=== PATIENT | female | born 1950 | race African-American/Black ===

== ENCOUNTER 2017-01-08 21:41 | Inpatient (IN) | payer MEDICARE, MEDICAID ==
[~2017-01-08] VITALS: Ht 162.6 cm; Wt 134.4 kg
[2017-01-08] MEDS ORDERED: ALBUTEROL (0.083%) 2.5MG/3ML NEB HHN STA (22:46)
[2017-01-08] MEDS ORDERED: NITROGLYCERIN OINT 1GM/INCH UDPKT TD STA (22:46)
[2017-01-08] MEDS ORDERED: FUROSEMIDE 40MG/4ML VIAL IV STA (22:46)
[2017-01-08] MEDS ORDERED: IPRATROPIUM BROMIDE (0.02%) 0.5MG/2.5ML NEB HHN STA (22:46)
[2017-01-08 23:22] LABS: HEMATOCRIT. 36.6 % (36.0-48.0); HEMOGLOBIN. 11.4 g/dL (12.0-16.0); MEAN CORPUSCULAR HEMOGLOBIN 26.6 pg (28.0-32.0); MEAN PLATELET VOLUME 7.8 fl (7.4-10.4); PLATELET 217 x1000/uL (130-400); RED BLOOD CELL COUNT 4.31 mill/uL (4.2-5.4); RED CELL DISTRIBUTION WIDTH 19.3 % (11.6-14.6)
[2017-01-08 23:43] LABS: CARBON DIOXIDE 26 mEq/L (21-32); CHLORIDE 103 mEq/L (98-107)
[2017-01-09] VITALS (65 sets, daily range): BP systolic 92–176; BP diastolic 43–105
[2017-01-09] MEDS ORDERED: HEPARIN 25,000 UNITS PREMIX 500 ML IV ONE
[2017-01-09] MEDS ORDERED: HEPARIN 5000 UNITS/ML VIAL IV ONE
[2017-01-09 00:29] LABS: PLATELET ESTIMATE NORMAL
[2017-01-09 01:05] LABS: INR 1.1; PARTIAL THROMBOPLASTIN TIME 28.2 sec (23.4-31.0); PROTHROMBIN TIME 11.8 sec (9.4-11.6)
[2017-01-09] MEDS ORDERED: MORPHINE SULFATE 4 MG/ML CPJ (NOT FOR IM USE) IV STA (03:55)
[2017-01-09] MEDS ORDERED: ONDANSETRON HCL 4MG/2ML VIAL IV STA (03:55)
[2017-01-09] MEDS ORDERED: NITROGLYCERIN 50MG PREMIX 250 ML IV ONE (04:00)
[2017-01-09] MEDS ORDERED: ASPIRIN 325MG EC TABLET PO NR (06:00)
[2017-01-09] MEDS ORDERED: MORPHINE SULFATE 2 MG/ML CPJ (NOT FOR IM USE) IV PRN (06:00)
[2017-01-09] MEDS ORDERED: ONDANSETRON HCL 4MG/2ML VIAL IV PRN (06:15)
[2017-01-09] MEDS ORDERED: HEPARIN 25,000 UNITS PREMIX 500 ML IV PRN (06:15)
[2017-01-09] MEDS ORDERED: Lantus SUBCUT (06:16)
[2017-01-09] MEDS ORDERED: humalog SUBCUT (06:16)
[2017-01-09 06:48] LABS: CREATINE KINASE MB FRACTION 24.7 ng/mL (0.5-3.6)
[2017-01-09 07:11] LABS: TROPONIN I 6.3 ng/mL (0.00-0.04)
[2017-01-09] MEDS ORDERED: NITROGLYCERIN 50MG PREMIX 250 ML IV PRN (07:30)
[2017-01-09] MEDS ORDERED: HEPARIN BOLUS PRN aPTT 30-44 IV (07:45)
[2017-01-09] MEDS ORDERED: HEPARIN BOLUS PRN aPTT <30 IV (07:45)
[2017-01-09] MEDS: HEPARIN 25,000 UNITS PREMIX 500 ML IV SCH (07:51)
[2017-01-09] MEDS ORDERED: METO25TA6 PO (08:38)
[2017-01-09] MEDS ORDERED: FURO40TA5 PO (08:38)
[2017-01-09] MEDS ORDERED: LOSA25TA12 PO (08:39)
[2017-01-09] MEDS ORDERED: SIMV40TA5 PO (08:39)
[2017-01-09] MEDS ORDERED: ASPI-1159 PO (08:40)
[2017-01-09] MEDS ORDERED: ALBU90AE IH (08:40)
[2017-01-09] MEDS ORDERED: ACET-3161 PO (08:41)
[2017-01-09] MEDS ORDERED: IBUP-1509 PO (08:41)
[2017-01-09] MEDS ORDERED: METOPROLOL TARTRATE 25MG TABLET PO SCH (10:15)
[2017-01-09] MEDS: IPRATROPIUM/ALBUTEROL 0.5-3(2.5)MG/3ML NEB HHN SCH ×5 (10:27→23:51)
[2017-01-09] MEDS: BUDESONIDE 0.5MG/2ML NEB HHN SCH ×2 (10:28→20:07)
[2017-01-09] MEDS ORDERED: DEXTROSE 50% WATER 50ML SYRINGE IV PRN (10:45)
[2017-01-09 11:15] LABS: *AMPHETAMINES SCREEN URINE NEGATIVE (NEGATIVE); *BARBITURATES SCREEN URINE NEGATIVE (NEGATIVE); *BENZODIAZEPINES SCREEN URINE NEGATIVE (NEGATIVE); *COCAINE SCREEN URINE NEGATIVE (NEGATIVE); CANNABINOID URINE SCREEN NEGATIVE (NEGATIVE); METHADONE URINE SCREEN NEGATIVE (NEGATIVE); OPIATES URINE SCREEN PRESUMTIVE POSITIVE (NEGATIVE); PHENCYCLIDINE URINE SCREEN NEGATIVE (NEGATIVE)
[2017-01-09] MEDS: CARVEDILOL 3.125 MG TABLET PO SCH ×2 (11:15→17:12)
[2017-01-09] MEDS: FAMOTIDINE 20MG TABLET PO SCH ×2 (11:52→21:19)
[2017-01-09] MEDS: BLOOD SUGAR DIAGNOSTIC STRIP TEST SCH ×3 (11:52→21:10)
[2017-01-09] MEDS: ACETYLCYSTEINE 200MG/ML 20% VIAL 4ML PO SCH ×2 (11:53→21:43)
[2017-01-09] MEDS: INSULIN LISPRO 100 UNITS/ML SUBCUT SCH ×3 (13:20→21:28)
[2017-01-09] MEDS: ATORVASTATIN CALCIUM 20MG TABLET PO SCH (21:19)
[2017-01-09] MEDS: MORPHINE SULFATE 4 MG/ML CPJ (NOT FOR IM USE) IV PRN (22:20)
[2017-01-10] VITALS (70 sets, daily range): BP systolic 100–159; BP diastolic 47–104
[2017-01-10] MEDS: HEPARIN 25,000 UNITS PREMIX 500 ML IV SCH (01:29)
[2017-01-10] MEDS: IPRATROPIUM/ALBUTEROL 0.5-3(2.5)MG/3ML NEB HHN SCH ×2 (03:47→08:25)
[2017-01-10 05:21] LABS: BASOPHILS % 0.3 % (0.0-2.0); HEMATOCRIT. 31.9 % (36.0-48.0); HEMOGLOBIN. 10.1 g/dL (12.0-16.0); LYMPHOCYTES % 18.2 % (20.0-50.0); MEAN CORPUSCULAR HEMOGLOBIN 26.9 pg (28.0-32.0); MONOCYTES % 7.7 % (2.0-8.0); NEUTROPHILS % 71.8 % (40.0-76.0); PLATELET 197 x1000/uL (130-400); RED BLOOD CELL COUNT 3.76 mill/uL (4.2-5.4); RED CELL DISTRIBUTION WIDTH 19.2 % (11.6-14.6)
[2017-01-10 06:49] LABS: TROPONIN I 3.5 ng/mL (0.00-0.04)
[2017-01-10] MEDS: BLOOD SUGAR DIAGNOSTIC STRIP TEST SCH ×4 (08:22→21:00)
[2017-01-10] MEDS: BUDESONIDE 0.5MG/2ML NEB HHN SCH ×3 (08:25→19:59)
[2017-01-10] MEDS: CARVEDILOL 3.125 MG TABLET PO SCH ×2 (08:30→21:51)
[2017-01-10] MEDS: FAMOTIDINE 20MG TABLET PO SCH ×2 (08:30→21:48)
[2017-01-10] MEDS: MORPHINE SULFATE 4 MG/ML CPJ (NOT FOR IM USE) IV PRN (08:31)
[2017-01-10] MEDS: INSULIN LISPRO 100 UNITS/ML SUBCUT SCH ×4 (08:32→22:11)
[2017-01-10] MEDS ORDERED: ARIP20TA2 PO (09:48)
[2017-01-10] MEDS ORDERED: DULO30CA2 PO (09:48)
[2017-01-10] MEDS: IPRATROPIUM BROMIDE (0.02%) 0.5MG/2.5ML NEB HHN SCH ×4 (10:03→19:58)
[2017-01-10] MEDS: METHYLPREDNISOLONE SOD SUCC 40 MG/ML VIAL IV SCH ×2 (10:34→17:01)
[2017-01-10] MEDS: DULOXETINE HCL 30MG DR CAPSULE PO SCH ×2 (12:45→17:01)
[2017-01-10] MEDS ORDERED: SODIUM CHLORIDE 0.45% 1,000 ML IV ONE ×2 (13:30→15:45)
[2017-01-10] MEDS ORDERED: LIDOCAINE HCL 1% 20ML VIAL (Pyxis) INJ ONE (13:42)
[2017-01-10] MEDS ORDERED: ASPIRIN/SOD BICARB/CITRIC ACID 324MG TAB EFF ONE (13:43)
[2017-01-10] MEDS ORDERED: IODIXANOL 320MG/ML 100 ML BOTTLE IV ONE ×2 (13:43→15:21)
[2017-01-10] MEDS ORDERED: HEPARIN SODIUM 1,000 UNIT/1ML VIAL IV ONE ×2 (13:50→14:25)
[2017-01-10] MEDS ORDERED: ARIPIPRAZOLE 10MG TABLET PO SCH (14:00)
[2017-01-10 14:04] LABS: CLARITY URINE CLEAR (CLEAR); COLOR URINE YELLOW (YELLOW); GLUCOSE URINE NEGATIVE (NEGATIVE); KETONES URINE NEGATIVE (NEGATIVE); LEUKOCYTE ESTERASE URINE TRACE (NEGATIVE); NITRITE URINE NEGATIVE (NEGATIVE); OCCULT BLOOD URINE 2+ (NEGATIVE); PROTEIN URINE 3+ (NEGATIVE); SPECIFIC GRAVITY URINE 1.019 (1.005-1.030)
[2017-01-10] MEDS ORDERED: FENTANYL CITRATE/PF 50MCG/ML 2ML VIAL ONE (14:04)
[2017-01-10] MEDS ORDERED: MIDAZOLAM HCL 2 MG/2 ML VIAL ONE (14:04)
[2017-01-10] MEDS ORDERED: NICARDIPINE 100MCG/ML 10ML VIAL (CATH LAB) IV ONE (14:43)
[2017-01-10] MEDS ORDERED: NITROGLYCERIN 50MCG/ML 10ML VIAL (CATH LAB) IV ONE (14:43)
[2017-01-10] MEDS ORDERED: ATROPINE SULFATE 1MG/10ML SYR IV PRN (15:30)
[2017-01-10] MEDS: ATORVASTATIN CALCIUM 20MG TABLET PO SCH (21:48)
[2017-01-10] MEDS: ARIPIPRAZOLE 10MG TABLET PO SCH (21:51)
[2017-01-10] MEDS: ACETYLCYSTEINE 200MG/ML 20% VIAL 4ML PO SCH (21:53)
[2017-01-11] VITALS (18 sets, daily range): BP systolic 119–159; BP diastolic 58–101
[2017-01-11] MEDS: IPRATROPIUM BROMIDE (0.02%) 0.5MG/2.5ML NEB HHN SCH ×6 (00:27→19:55)
[2017-01-11] MEDS: METHYLPREDNISOLONE SOD SUCC 40 MG/ML VIAL IV SCH ×3 (01:01→17:32)
[2017-01-11] MEDS: ACETAMINOPHEN 325MG TABLET PO PRN ×2 (01:39→08:54)
[2017-01-11] MEDS: BLOOD SUGAR DIAGNOSTIC STRIP TEST SCH ×4 (05:50→21:09)
[2017-01-11 06:38] LABS: HEMATOCRIT. 33.1 % (36.0-48.0); HEMOGLOBIN. 10.4 g/dL (12.0-16.0); MEAN CORPUSCULAR HEMOGLOBIN 26.7 pg (28.0-32.0); MEAN CORPUSCULAR VOLUME 84.8 fL (81.0-99.0); MEAN PLATELET VOLUME 8.3 fl (7.4-10.4); PLATELET 201 x1000/uL (130-400); RED CELL DISTRIBUTION WIDTH 18.7 % (11.6-14.6)
[2017-01-11] MEDS: INSULIN LISPRO 100 UNITS/ML SUBCUT SCH ×4 (08:21→21:08)
[2017-01-11] MEDS: FAMOTIDINE 20MG TABLET PO SCH ×2 (08:42→20:58)
[2017-01-11] MEDS: DULOXETINE HCL 30MG DR CAPSULE PO SCH (08:42)
[2017-01-11] MEDS: CARVEDILOL 3.125 MG TABLET PO SCH ×2 (08:44→21:10)
[2017-01-11] MEDS: BUDESONIDE 0.5MG/2ML NEB HHN SCH ×2 (09:04→19:56)
[2017-01-11] MEDS: APIXABAN 5 MG TABLET PO SCH ×2 (10:38→17:33)
[2017-01-11] MEDS: INSULIN DETEMIR UD 100 UNITS/ML SYR SUBCUT SCH (10:46)
[2017-01-11 15:12] LABS: PLATELET ESTIMATE NORMAL
[2017-01-11] MEDS: ATORVASTATIN CALCIUM 20MG TABLET PO SCH (20:57)
[2017-01-11] MEDS: ARIPIPRAZOLE 10MG TABLET PO SCH (21:08)
[2017-01-12] VITALS (12 sets, daily range): BP systolic 115–157; BP diastolic 49–105
[2017-01-12] MEDS: IPRATROPIUM BROMIDE (0.02%) 0.5MG/2.5ML NEB HHN SCH ×6 (00:12→20:11)
[2017-01-12] MEDS: METHYLPREDNISOLONE SOD SUCC 40 MG/ML VIAL IV SCH ×3 (03:04→17:38)
[2017-01-12] MEDS: BLOOD SUGAR DIAGNOSTIC STRIP TEST SCH ×4 (07:17→20:06)
[2017-01-12] MEDS ORDERED: INSULIN LISPRO 100 UNITS/ML SUBCUT SCH (07:33)
[2017-01-12] MEDS: DULOXETINE HCL 30MG DR CAPSULE PO SCH (08:18)
[2017-01-12] MEDS: FAMOTIDINE 20MG TABLET PO SCH ×2 (08:19→20:05)
[2017-01-12] MEDS: APIXABAN 5 MG TABLET PO SCH ×2 (08:19→17:38)
[2017-01-12] MEDS: CARVEDILOL 3.125 MG TABLET PO SCH ×2 (08:19→20:05)
[2017-01-12] MEDS: INSULIN LISPRO 100 UNITS/ML SUBCUT SCH ×4 (08:20→21:06)
[2017-01-12] MEDS: BUDESONIDE 0.5MG/2ML NEB HHN SCH (08:35)
[2017-01-12 09:30] LABS: HEMATOCRIT. 34.4 % (36.0-48.0); HEMOGLOBIN. 10.8 g/dL (12.0-16.0); MEAN CORPUSCULAR HEMOGLOBIN 26.7 pg (28.0-32.0); MEAN CORPUSCULAR VOLUME 85.1 fL (81.0-99.0); MEAN PLATELET VOLUME 8.1 fl (7.4-10.4); PLATELET 241 x1000/uL (130-400); RED BLOOD CELL COUNT 4.04 mill/uL (4.2-5.4); RED CELL DISTRIBUTION WIDTH 18.7 % (11.6-14.6)
[2017-01-12] MEDS: ACETAMINOPHEN 325MG TABLET PO PRN (09:38)
[2017-01-12] MEDS: INSULIN DETEMIR UD 100 UNITS/ML SYR SUBCUT SCH ×2 (09:39→22:05)
[2017-01-12 10:06] LABS: PHOSPHORUS 2.6 mg/dL (2.5-4.9)
[2017-01-12 10:21] LABS: NUCLEATED RED BLOOD CELLS 1 /100 WBC; PLATELET ESTIMATE NORMAL
[2017-01-12] MEDS ORDERED: SODIUM POLYSTYRENE SULFONATE 15 G/60 ML BOT PO NR (11:45)
[2017-01-12] MEDS ORDERED: METHYLPREDNISOLONE SOD SUCC 40 MG/ML VIAL IV SCH (18:00)
[2017-01-12] MEDS: ATORVASTATIN CALCIUM 20MG TABLET PO SCH (20:05)
[2017-01-12] MEDS: ARIPIPRAZOLE 10MG TABLET PO SCH (20:05)
[2017-01-12] MEDS ORDERED: INSULIN LISPRO 100 UNITS/ML SUBCUT NR (21:00)
[2017-01-12] MEDS ORDERED: INSULIN DETEMIR UD 100 UNITS/ML SYR SUBCUT SCH (22:00)
[2017-01-13] VITALS (12 sets, daily range): BP systolic 134–176; BP diastolic 82–113
[2017-01-13] MEDS: IPRATROPIUM BROMIDE (0.02%) 0.5MG/2.5ML NEB HHN SCH ×6 (00:48→20:14)
[2017-01-13] MEDS ORDERED: CLONIDINE 0.1MG TABLET PO SCH (01:00)
[2017-01-13] MEDS: BLOOD SUGAR DIAGNOSTIC STRIP TEST SCH ×5 (06:18→21:40)
[2017-01-13 06:45] LABS: BASOPHILS % 0.1 % (0.0-2.0); HEMATOCRIT. 34.5 % (36.0-48.0); HEMOGLOBIN. 10.9 g/dL (12.0-16.0); LYMPHOCYTES % 10.3 % (20.0-50.0); MEAN CORPUSCULAR HEMOGLOBIN 26.9 pg (28.0-32.0); MEAN CORPUSCULAR VOLUME 84.7 fL (81.0-99.0); MEAN PLATELET VOLUME 8.2 fl (7.4-10.4); MONOCYTES % 5.8 % (2.0-8.0); NEUTROPHILS % 83.8 % (40.0-76.0); PLATELET 255 x1000/uL (130-400); RED BLOOD CELL COUNT 4.07 mill/uL (4.2-5.4); RED CELL DISTRIBUTION WIDTH 18.8 % (11.6-14.6)
[2017-01-13] MEDS: APIXABAN 5 MG TABLET PO SCH ×2 (08:40→17:04)
[2017-01-13] MEDS: DULOXETINE HCL 30MG DR CAPSULE PO SCH (08:40)
[2017-01-13] MEDS: METHYLPREDNISOLONE SOD SUCC 40 MG/ML VIAL IV SCH (08:40)
[2017-01-13] MEDS: FAMOTIDINE 20MG TABLET PO SCH ×2 (08:41→21:38)
[2017-01-13] MEDS: CARVEDILOL 3.125 MG TABLET PO SCH (08:41)
[2017-01-13] MEDS: INSULIN LISPRO 100 UNITS/ML SUBCUT SCH ×4 (08:42→21:46)
[2017-01-13 09:04] LABS: BG BASE EXCESS 2.8 mmol/L (-2.0-2.0); BG CARBOXYHEMOGLOBIN 0.3 % (0.5-1.5); BG DEOXYHEMOGLOBIN 3.2 % (0.0-5.0); BG FRACTION INSPIRED OXYGEN 28; BG HCO3 ACT 28.8 mmol/L (22.0-26.0); BG OXYGEN SATURATION 96.8 % (92.0-98.5); BG OXYHEMOGLOBIN 96.5 % (94.0-97.0); BG PCO2 50.6 mmHg (35.0-45.0); BG PH 7.373 (7.350-7.450); BG PO2 90.1 mmHg (75.0-100.0); BG SAMPLE SITE RIGHT RADIAL; BG TOTAL HEMOGLOBIN 11.9 g/dL (12.0-18.0); BG VENT MODE NASAL CANNULA
[2017-01-13] MEDS ORDERED: DILTIAZEM HCL 5MG/ML 5ML VIAL IV SCH (09:15)
[2017-01-13] MEDS ORDERED: INSULIN DETEMIR UD 100 UNITS/ML SYR SUBCUT SCH (10:00)
[2017-01-13] MEDS: INSULIN DETEMIR UD 100 UNITS/ML SYR SUBCUT SCH ×2 (11:27→21:45)
[2017-01-13] MEDS: ARIPIPRAZOLE 10MG TABLET PO SCH (21:38)
[2017-01-13] MEDS: CARVEDILOL 6.25 MG TABLET PO SCH (21:39)
[2017-01-13] MEDS: DILTIAZEM HCL 60MG TABLET PO SCH (21:39)
[2017-01-13] MEDS: ATORVASTATIN CALCIUM 20MG TABLET PO SCH (21:39)
[2017-01-14] VITALS (11 sets, daily range): BP systolic 119–159; BP diastolic 43–101
[2017-01-14] MEDS: IPRATROPIUM BROMIDE (0.02%) 0.5MG/2.5ML NEB HHN SCH ×3 (00:31→15:21)
[2017-01-14] MEDS: IPRATROPIUM/ALBUTEROL 0.5-3(2.5)MG/3ML NEB HHN PRN ×2 (04:31→07:15)
[2017-01-14] MEDS: DILTIAZEM HCL 60MG TABLET PO SCH (05:32)
[2017-01-14 06:18] LABS: BASOPHILS % 0.2 % (0.0-2.0); EOSINOPHILS % 0.7 % (0.0-5.0); HEMATOCRIT. 34.6 % (36.0-48.0); LYMPHOCYTES % 19.8 % (20.0-50.0); MEAN CORPUSCULAR HEMOGLOBIN 26.8 pg (28.0-32.0); MEAN CORPUSCULAR VOLUME 84.7 fL (81.0-99.0); MEAN PLATELET VOLUME 7.9 fl (7.4-10.4); MONOCYTES % 9.9 % (2.0-8.0); NEUTROPHILS % 69.4 % (40.0-76.0); PLATELET 266 x1000/uL (130-400); RED BLOOD CELL COUNT 4.08 mill/uL (4.2-5.4); RED CELL DISTRIBUTION WIDTH 18.4 % (11.6-14.6)
[2017-01-14] MEDS: BLOOD SUGAR DIAGNOSTIC STRIP TEST SCH ×4 (07:32→21:36)
[2017-01-14] MEDS: FAMOTIDINE 20MG TABLET PO SCH ×2 (08:00→21:34)
[2017-01-14] MEDS: APIXABAN 5 MG TABLET PO SCH ×2 (08:00→17:18)
[2017-01-14] MEDS: INSULIN LISPRO 100 UNITS/ML SUBCUT SCH ×4 (08:00→22:58)
[2017-01-14] MEDS: DULOXETINE HCL 30MG DR CAPSULE PO SCH (08:01)
[2017-01-14] MEDS: CARVEDILOL 6.25 MG TABLET PO SCH (08:01)
[2017-01-14] MEDS: PREDNISONE 20MG TABLET PO SCH (08:01)
[2017-01-14] MEDS: INSULIN DETEMIR UD 100 UNITS/ML SYR SUBCUT SCH ×2 (10:21→22:58)
[2017-01-14] MEDS: DILTIAZEM HCL 90MG TABLET PO SCH ×2 (12:02→17:18)
[2017-01-14] MEDS: NEBIVOLOL HCL 5 MG TABLET PO SCH (12:02)
[2017-01-14] MEDS ORDERED: LACTULOSE 20G/30ML UDC PO PRN (12:45)
[2017-01-14] MEDS: ATORVASTATIN CALCIUM 20MG TABLET PO SCH (21:34)
[2017-01-14] MEDS: ARIPIPRAZOLE 10MG TABLET PO SCH (21:34)
[2017-01-15] VITALS (12 sets, daily range): BP systolic 124–158; BP diastolic 51–96
[2017-01-15] MEDS ORDERED: INSULIN LISPRO 100 UNITS/ML SUBCUT ONE
[2017-01-15] MEDS: DILTIAZEM HCL 90MG TABLET PO SCH ×3 (00:27→12:06)
[2017-01-15] MEDS: BLOOD SUGAR DIAGNOSTIC STRIP TEST SCH ×4 (06:21→20:34)
[2017-01-15] MEDS: INSULIN LISPRO 100 UNITS/ML SUBCUT SCH ×4 (08:10→20:39)
[2017-01-15] MEDS: PREDNISONE 20MG TABLET PO SCH (08:16)
[2017-01-15] MEDS: NEBIVOLOL HCL 5 MG TABLET PO SCH (08:17)
[2017-01-15] MEDS: APIXABAN 5 MG TABLET PO SCH ×2 (08:17→17:08)
[2017-01-15] MEDS: DULOXETINE HCL 30MG DR CAPSULE PO SCH (08:17)
[2017-01-15] MEDS: FAMOTIDINE 20MG TABLET PO SCH ×2 (08:17→20:32)
[2017-01-15] MEDS: IPRATROPIUM BROMIDE (0.02%) 0.5MG/2.5ML NEB HHN SCH ×4 (09:11→20:03)
[2017-01-15] MEDS: INSULIN DETEMIR UD 100 UNITS/ML SYR SUBCUT SCH ×2 (11:16→20:39)
[2017-01-15] MEDS: BUDESONIDE 0.5MG/2ML NEB HHN SCH (14:57)
[2017-01-15] MEDS: DILTIAZEM HCL 60MG TABLET PO SCH (17:03)
[2017-01-15] MEDS: ATORVASTATIN CALCIUM 20MG TABLET PO SCH (20:31)
[2017-01-15] MEDS: ARIPIPRAZOLE 10MG TABLET PO SCH (20:32)
[2017-01-16] VITALS (10 sets, daily range): BP systolic 127–154; BP diastolic 64–94
[2017-01-16] MEDS: BUDESONIDE 0.5MG/2ML NEB HHN SCH ×2 (00:01→12:05)
[2017-01-16] MEDS: IPRATROPIUM BROMIDE (0.02%) 0.5MG/2.5ML NEB HHN SCH ×5 (00:01→16:09)
[2017-01-16] MEDS: DILTIAZEM HCL 60MG TABLET PO SCH ×4 (00:56→17:24)
[2017-01-16] MEDS: BLOOD SUGAR DIAGNOSTIC STRIP TEST SCH ×3 (05:58→17:18)
[2017-01-16 07:21] LABS: BASOPHILS % 0.2 % (0.0-2.0); EOSINOPHILS % 2.2 % (0.0-5.0); HEMATOCRIT. 33.8 % (36.0-48.0); HEMOGLOBIN. 10.9 g/dL (12.0-16.0); LYMPHOCYTES % 21.6 % (20.0-50.0); MEAN CORPUSCULAR HEMOGLOBIN 26.8 pg (28.0-32.0); MEAN CORPUSCULAR VOLUME 83.5 fL (81.0-99.0); MEAN PLATELET VOLUME 7.9 fl (7.4-10.4); MONOCYTES % 10.7 % (2.0-8.0); NEUTROPHILS % 65.3 % (40.0-76.0); PLATELET 274 x1000/uL (130-400); RED BLOOD CELL COUNT 4.04 mill/uL (4.2-5.4); RED CELL DISTRIBUTION WIDTH 18.9 % (11.6-14.6)
[2017-01-16] MEDS: PREDNISONE 20MG TABLET PO SCH (08:38)
[2017-01-16] MEDS: FAMOTIDINE 20MG TABLET PO SCH (08:38)
[2017-01-16] MEDS: APIXABAN 5 MG TABLET PO SCH ×2 (08:38→17:23)
[2017-01-16] MEDS: DULOXETINE HCL 30MG DR CAPSULE PO SCH (08:39)
[2017-01-16] MEDS: INSULIN LISPRO 100 UNITS/ML SUBCUT SCH ×3 (08:40→17:22)
[2017-01-16] MEDS ORDERED: NEBIVOLOL HCL 5 MG TABLET PO SCH (09:00)
[2017-01-16] MEDS: INSULIN DETEMIR UD 100 UNITS/ML SYR SUBCUT SCH (10:08)
== END 2017-01-16 18:39 | DRG 190 ==
LOC: ER 23:02 → CVICU 23:07 → CANRESERV 01-09 03:44 → ENRESERV 01-09 03:44 → EDBEDREQ 01-09 03:44 → EDBEDREQSVC 01-09 04:05 → EDBEDREQ 01-09 04:05 → CANRESERV 01-09 04:33 → ENRESERV 01-09 04:33 → 3WST 01-10 20:40
PROVIDERS: ADMIT Internal Medicine; ATTEND Internal Medicine
PROC: B2111ZZ Fluoroscopy of Multiple Coronary Arteries using Low Osmolar Contrast (ICD-10-PCS; principal; 2017-01-10)
PROC: 4A023N7 Measurement of Cardiac Sampling and Pressure, Left Heart, Percutaneous Approach (ICD-10-PCS; 2017-01-10)
DX: I21.4 Non-ST elevation (NSTEMI) myocardial infarction (principal); J96.00 Acute respiratory failure, unspecified whether with hypoxia or hypercapnia; I50.33 Acute on chronic diastolic (congestive) heart failure; N17.9 Acute kidney failure, unspecified; J84.9 Interstitial pulmonary disease, unspecified; I27.2 Other secondary pulmonary hypertension; E11.21 Type 2 diabetes mellitus with diabetic nephropathy; N18.3 Chronic kidney disease, stage 3 (moderate); D68.59 Other primary thrombophilia; E11.22 Type 2 diabetes mellitus with diabetic chronic kidney disease; I48.92 Unspecified atrial flutter; I13.0 Hypertensive heart and chronic kidney disease with heart failure and stage 1 through stage 4 chronic kidney disease, or unspecified chronic kidney disease; I25.10 Atherosclerotic heart disease of native coronary artery without angina pectoris; I48.0 Paroxysmal atrial fibrillation; E11.40 Type 2 diabetes mellitus with diabetic neuropathy, unspecified; J44.1 Chronic obstructive pulmonary disease with (acute) exacerbation; I35.0 Nonrheumatic aortic (valve) stenosis; E11.65 Type 2 diabetes mellitus with hyperglycemia; E66.01 Morbid (severe) obesity due to excess calories; Q25.0 Patent ductus arteriosus; Z79.82 Long term (current) use of aspirin; Z82.49 Family history of ischemic heart disease and other diseases of the circulatory system; Z83.3 Family history of diabetes mellitus; Z87.891 Personal history of nicotine dependence; Z90.710 Acquired absence of both cervix and uterus; Z95.5 Presence of coronary angioplasty implant and graft; Z88.0 Allergy status to penicillin; Z80.9 Family history of malignant neoplasm, unspecified; Z68.43 Body mass index [BMI] 50.0-59.9, adult
CPT/HCPCS: 36415; 36600; 51702; 71010; 76770; 80048; 80053; 80061; 80305; 81001; 82375; 82550; 82553; 82805; 82962; 83036; 83605; 83735; 83880; 84100; 84443; 84484; 85014; 85018; 85025; 85379; 85610; 85730; 87040; 87070; 87077; 87086; 93005; 93306; 93454; 93970; 94640; 94660; 94664; 96365; 96367; 96375; 97116; 97162; 97530; 99291; C1769; C1887; C1893; J1644; J1815; J1940; J2250; J2270; J2405; J2920; J3010; J3490; J7512; J7608; J7611; J7620; J7626; Q9967; A4315